=== PATIENT | male | born 2000 | race African-American/Black ===

== ENCOUNTER 2023-05-04 13:23 | Emergency (ER) | payer MEDICAID ==
[~2023-05-04] VITALS: Ht 177.8 cm; Wt 87.1 kg
--- NOTE | 2023-05-04 14:45 | NUR ---
C/O RIGHT TOE PAIN S/P STUBBING IT AGAINST A DOOR 2 DAYS AGO
--- NOTE | 2023-05-04 15:00 | NUR ---
AT SIDE FOR DEMETRIA
[2023-05-04] MEDS ORDERED: IBUP-1955 PO (15:49)
--- NOTE | 2023-05-04 16:09 | NUR ---
ROBERTO TAPE APPLIED BY EMT
--- NOTE | 2023-05-04 16:11 | NUR ---
Patient discharged to home in stable condition. Written and verbal after care instructions given. Patient verbalizes understanding of instruction.
[2023-05-04 16:12] VITALS: BP 121/81; TEMP 98.3
== END 2023-05-04 16:12 | disposition home or self-care (01) ==
LOC: ER 13:30
DX: S93.501A Unspecified sprain of right great toe, initial encounter (principal); S90.31XA Contusion of right foot, initial encounter; J45.909 Unspecified asthma, uncomplicated; W22.8XXA Striking against or struck by other objects, initial encounter; Y93.89 Activity, other specified; Y92.89 Other specified places as the place of occurrence of the external cause; Y99.8 Other external cause status
CPT/HCPCS: 73630-TC